=== PATIENT | male | born 1950 | race Caucasian/White ===

== ENCOUNTER 2021-09-21 01:12 | Day surgery (SDC) | payer MEDICARE, SELFPAY ==
[2021-09-08 13:39] VITALS: BMI 34.3
--- NOTE | 2021-09-18 16:08 | PM.HPGS ---
History of Present Illness History of Present Illness Consent: Risks, benefits, and alternatives have been discussed and questions answered. Patient agrees to proceed with procedure. Chief complaint: hx of colon polyps Narrative: Varinder Jamil is a 71 year old male referred for colon cancer screening. He has a history of polyps Review of Systems Review of Systems: All systems reviewed & are unremarkable except as noted in HPI and below PMFSH Past Medical History Medical History CAD (coronary artery disease) Diabetes Hyperlipidemia Rheumatoid arthritis Surgical History Surgical History (Updated 09/21/21 @ 10:55 by Zachary Vides MD) Hx of CABG Social History Social History Smoking packs per day: 2.5 Smoking cigarettes per day: 50.0 Smoking status: Former smoker Tobacco type: cigarettes Alcohol intake: former Alcohol use details: A TEEN Substance use: never Substance use type: does not use Living arrangements: with family Spiritual care concerns: No Meds Home Medications and Allergies Home Medications Medication Instructions Recorded Confirmed Type Enbrel 50 mg SUBCUT WEEKLY 09/08/21 09/08/21 History aspirin 81 mg PO DAILY 09/08/21 09/08/21 History folic acid 1 mg PO DAILY 09/08/21 09/08/21 History glimepiride 2 mg PO DAILY 09/08/21 09/08/21 History metformin 1,000 mg PO BID 09/08/21 09/08/21 History methotrexate sodium 25 mg PO WEEKLY 09/08/21 09/08/21 History metoprolol succinate 50 mg PO DAILY 09/08/21 09/08/21 History pantoprazole 40 mg PO DAILY 09/08/21 09/08/21 History prednisone 2.5 mg PO DAILY 09/08/21 09/08/21 History rosuvastatin 20 mg PO DAILY 09/08/21 09/08/21 History Allergies Allergy/AdvReac Type Severity Reaction Status Date / Time Penicillins Allergy Mild Unknown Verified 09/21/21 10:44 IVP DYE Allergy Mild Hives Uncoded 09/21/21 10:44 Exam Resp: Auscultation: clear to auscultation bilaterally Cardio: Rate: regular rate Rhythm: regular rhythm GI: GI Palp: Yes Soft to palpation and No Tenderness to palpation present (GI) Assessment and Plan Assessment and plan (1) Colon cancer screening: Code(s): Z12.11 - Encounter for screening for malignant neoplasm of colon Status: Acute Assessment and Plan: Colonoscopy with possible biopsy or polypectomy or cautery or injection of substances.
[2021-09-21 10:46] VITALS: BP 153/78; PULSE 61; RESP 18; TEMP 36.3; O2SAT 98; BMI 33.1
--- NOTE | 2021-09-21 10:54 | P.PNAN_ITS ---
Anes - Initial Pre Proc Eval Procedure: Operation Date: 09/21/21 11:30 Proposed Procedures p Screening Colonoscopy - Brett Adnrews MD Date/Time: 09/21/21 10:54 Surgeon: Brett Andrews MD Pre Op Diagnosis: hx of colon polyps Patient Data Age: 71 Gender: M Height: 1.7 m Weight: 96.1 kg Last Vital Signs Temp 36.3 C L 09/21/21 10:46 Pulse 61 09/21/21 10:46 Resp 18 09/21/21 10:46 BP 153/78 H 09/21/21 10:46 Pulse Ox 98 09/21/21 10:46 Allergies Allergy/AdvReac Type Severity Reaction Status Date / Time Penicillins Allergy Mild Unknown Verified 09/21/21 10:44 IVP DYE Allergy Mild Hives Uncoded 09/21/21 10:44 Home Medications Medication Instructions Recorded Confirmed Type aspirin [Adult Low Dose Aspirin] 81 mg PO DAILY 09/08/21 09/08/21 History etanercept [Enbrel] 50 mg SUBCUT WEEKLY 09/08/21 09/08/21 History folic acid 1 mg PO DAILY 09/08/21 09/08/21 History glimepiride 2 mg PO DAILY 09/08/21 09/08/21 History metformin 1,000 mg PO BID 09/08/21 09/08/21 History methotrexate sodium 25 mg PO WEEKLY 09/08/21 09/08/21 History metoprolol succinate 50 mg PO DAILY 09/08/21 09/08/21 History pantoprazole 40 mg PO DAILY 09/08/21 09/08/21 History prednisone 2.5 mg PO DAILY 09/08/21 09/08/21 History rosuvastatin 20 mg PO DAILY 09/08/21 09/08/21 History Patient hx anesthesia problems: none Family hx anesthesia problems: none Results Review: All pre-operative results and documents have been reviewed as part of the pre-operative evaluation. [facility] Past Medical History Medical History (Updated 09/21/21 @ 10:55 by Zachary Vides MD) CAD (coronary artery disease) Diabetes Hyperlipidemia Rheumatoid arthritis Surgical History Surgical History (Updated 09/21/21 @ 10:55 by Zachary Vides MD) Hx of CABG Social History Social History Smoking packs per day: 2.5 Smoking cigarettes per day: 50.0 Smoking status: Former smoker Tobacco type: cigarettes Alcohol intake: former Alcohol use details: A TEEN Substance use: never Substance use type: does not use Living arrangements: with family Spiritual care concerns: No Anes - Eval Final PreProcedure Day of Procedure 09/21/21 10:54 Patient weight: obese Heart: regular rate and rhythm Lungs: clear to auscultation Airway: Mallampati scale class II Neurological: alert and oriented Last oral intake: >/= 8 hours ASA classification: III Emergent: no Anesthetic plan: proceed Anesthesia type and monitoring: general GIVS and standard monitoring Results Review: All pre-operative results and documents have been reviewed as part of the pre-operative evaluation. Informed Consent: The patient's anesthetic plan and its attendant risks and benefits were discussed with the patient/family/POA. Questions were solicited and answers provided to the satisfaction of the patient/family/POA.
[2021-09-21] MEDS: LACTATED RINGERS 1,000 ML 150 ML IV CONT (11:08)
[2021-09-21 11:09] LABS: Glucose Point of Care 101 mg/dl (65-105)
[2021-09-21 11:49] VITALS: BP 110/52; PULSE 53; RESP 18; O2SAT 98
[2021-09-21 11:59] VITALS: BP 112/64; PULSE 46; RESP 18; O2SAT 100
[2021-09-21 12:05] VITALS: BP 120/64; PULSE 46; RESP 18; O2SAT 98
== END 2021-09-21 12:16 | disposition home or self-care (01) ==
PROVIDERS: PCP Internal Medicine; Visit Provider Internal Medicine Gastroenterology
PROC: 0DJD8ZZ Inspection of Lower Intestinal Tract, Via Natural or Artificial Opening Endoscopic (ICD-10-PCS; CPT 45378; principal; 2021-09-21 11:30)
DX: Z12.11 Encounter for screening for malignant neoplasm of colon (principal); K63.5 Polyp of colon; D12.5 Benign neoplasm of sigmoid colon; I25.10 Atherosclerotic heart disease of native coronary artery without angina pectoris; E11.9 Type 2 diabetes mellitus without complications; M06.9 Rheumatoid arthritis, unspecified; E78.5 Hyperlipidemia, unspecified; Z95.1 Presence of aortocoronary bypass graft; Z87.891 Personal history of nicotine dependence; E66.9 Obesity, unspecified; Z68.33 Body mass index [BMI] 33.0-33.9, adult; Z79.82 Long term (current) use of aspirin; Z79.84 Long term (current) use of oral hypoglycemic drugs
CPT/HCPCS: 45385; 82948; 88305; J2704; J7120

== ENCOUNTER 2022-04-20 08:15 | Outpatient (CLI) | payer MEDICARE, SELFPAY ==
--- NOTE | 2022-04-20 11:00 | NEURO_ITS ---
Impression: # Complains of nocturnal paresthesia. Non-insulin dependent diabetic. # Evolving right Carpal Tunnel Syndrome. # Needle/EMG exam mildly neurogenic; Possibility of higher involvement needs to be ruled out. # Clinical correlation recommended. Nerve Conduction Studies Anti Sensory Summary Table Stim Site NR Peak (ms) P-T Amp (?V) Site1 Site2 Delta-P (ms) Dist (cm) Herb (m/s) Left Median Anti Sensory (2-3nd Digit) Wrist 3.2 44.5 Wrist 2-3nd Digit 3.2 14.0 44 Wrist 3.2 35.5 Wrist 2-3nd Digit 3.2 14.0 44 Right Median Anti Sensory (2-3nd Digit) Wrist 4.4 11.8 Wrist 2-3nd Digit 4.4 14.0 32 Wrist 4.2 13.7 Wrist 2-3nd Digit 4.4 14.0 32 Left Radial Anti Sensory (Base 1st Digit) Wrist 2.1 15.7 Wrist Base 1st Digit 2.1 0.0 Right Radial Anti Sensory (Base 1st Digit) Wrist 2.0 19.2 Wrist Base 1st Digit 2.0 0.0 Left Ulnar Anti Sensory (5th Digit) Wrist 2.6 65.5 Wrist 5th Digit 2.6 14.0 54 Right Ulnar Anti Sensory (5th Digit) Wrist 2.6 45.8 Wrist 5th Digit 2.6 14.0 54 Motor Summary Table Stim Site NR Onset (ms) O-P Amp (mV) Site1 Site2 Delta-0 (ms) Dist (cm) Herb (m/s) Left Median Motor (Abd Poll Brev) Wrist 3.1 1.8 Elbow Wrist 5.7 31.0 54 Elbow 8.8 1.9 Right Median Motor (Abd Poll Brev) Wrist 3.8 1.3 Elbow Wrist 5.0 27.0 54 Elbow 8.8 1.0 Left Ulnar Motor (Abd Dig Minimi) Wrist 2.5 6.1 A Elbow Wrist 5.4 30.0 56 A Elbow 7.9 4.8 Right Ulnar Motor (Abd Dig Minimi) Wrist 2.5 4.7 A Elbow Wrist 5.3 29.0 55 A Elbow 7.8 3.7 F Wave Studies NR F-Lat (ms) L-R F-Lat (ms) Left Median (Mrkrs) (Abd Poll Brev) 29.36 0.06 Right Median (Mrkrs) (Abd Poll Brev) 29.42 0.06 Left Ulnar (Mrkrs) (Abd Dig Min) 29.51 0.51 Right Ulnar (Mrkrs) (Abd Dig Min) 29.01 0.51 EMG Side Muscle Nerve Root Ins Act Fibs Amp Dur Recrt Comment Right 1stDorInt Ulnar C8-T1 Nml Nml Nml >12ms Reduced Right Ext Indicis Radial (Post Int) C7-8 Nml Nml Nml Nml Nml Right Ext Digitorum Radial (Post Int) C7-8 Nml Nml Nml Nml Nml Right BrachioRad Radial C5-6 Nml Nml Nml Nml Nml Right PronatorTeres Median C6-7 Nml Nml Nml Nml Nml Right Abd Poll Brev Median C8-T1 Nml Nml Nml >12ms Reduced Left 1stDorInt Ulnar C8-T1 Nml Nml Nml >12ms Reduced Left Ext Indicis Radial (Post Int) C7-8 Nml Nml Nml Nml Nml Left Ext Digitorum Radial (Post Int) C7-8 Nml Nml Nml Nml Nml Left BrachioRad Radial C5-6 Nml Nml Nml Nml Nml Left PronatorTeres Median C6-7 Nml Nml Nml Nml Nml Left Abd Poll Brev Median C8-T1 Nml Nml Nml >12ms Reduced Right ABD Dig Min Ulnar C8-T1 Nml Nml Nml Nml Nml Left ABD Dig Min Ulnar C8-T1 Nml Nml Nml Nml Nml MTDD
== END 2022-04-20 08:16 | disposition home or self-care (01) ==
PROVIDERS: PCP Internal Medicine; Visit Provider Internal Medicine
DX: R20.0 Anesthesia of skin (principal); G56.01 Carpal tunnel syndrome, right upper limb
CPT/HCPCS: 95886; 95911

== ENCOUNTER 2023-05-07 09:58 | Emergency (ER) | payer MEDICARE, SELFPAY ==
[2023-05-07 10:00] VITALS: BP 130/62; PULSE 63; RESP 18; TEMP 36.4; O2SAT 97
--- NOTE | 2023-05-07 10:07 | ECG_ITS ---
Measurements Intervals [place] Rate: 63 P: 39 MA: 162 QRS: 41 QRSD: 110 T: 115 QT: 433 QTc: 447 Interpretive Statements SINUS RHYTHM NONSPECIFIC ST AND T ABNORMALITY ABNORMAL ECG Electronically Signed On 05-08-2023 8:19:00 CDT by Micky Cummings M.D.
--- NOTE | 2023-05-07 10:28 | ED.DIZZY ---
HPI - Dizziness General Chief Complaint: Dizziness Stated Complaint: DIZZY Time Seen by Provider: 05/07/23 10:10 History of Present Illness HPI Narrative: This is a 72-year-old male with past history of coronary artery disease and diabetes, who presents to the emergency department complaining of nausea and vomiting for the past 1 and half hours. The patient states he woke this morning and on sitting up and noticed some lightheadedness, followed by nausea and nonbloody vomiting. He denies fevers, chills, cough, known sick contacts, chest pain, shortness of breath or diarrhea. He states he last passed gas last night but does not feel the need to. He states after receiving 4 mg of Zofran by EMS his symptoms have almost completely resolved Related Data Home Medications Medication Instructions Recorded Confirmed aspirin 81 mg tablet 81 mg PO DAILY 09/08/21 09/08/21 etanercept 50 mg/mL (1 mL) 50 mg subcut WEEKLY 09/08/21 09/08/21 subcutaneous syringe (Enbrel) folic acid 1 mg tablet 1 mg PO DAILY 09/08/21 09/08/21 glimepiride 2 mg tablet 2 mg PO DAILY 09/08/21 09/08/21 metformin 500 mg tablet,extended 1,000 mg PO BID 09/08/21 09/08/21 release 24 hr methotrexate sodium 2.5 mg tablet 25 mg PO WEEKLY 09/08/21 09/08/21 metoprolol succinate 50 mg 50 mg PO DAILY 09/08/21 09/08/21 tablet,extended release 24 hr pantoprazole 40 mg tablet,delayed 40 mg PO DAILY 09/08/21 09/08/21 release prednisone 2.5 mg tablet 2.5 mg PO DAILY 09/08/21 09/08/21 rosuvastatin 20 mg tablet 20 mg PO DAILY 09/08/21 09/08/21 Allergies Allergy/AdvReac Type Severity Reaction Status Date / Time Penicillins Allergy Mild Unknown Verified 09/21/21 10:44 bismuth subsalicylate Allergy Diarrhea Verified 05/07/23 10:19 [From Pepto-Bismol] IVP DYE Allergy Mild Hives Uncoded 09/21/21 10:44 Review of Systems Review of Systems: CONSTITUTIONAL: Denies fever, chills, or sweats. ENT: Denies rhinorrhea, congestion, sore throat, or otalgia. CARDIOVASCULAR: Denies chest pain, palpitations, or edema. RESPIRATORY: Denies cough or dyspnea. GASTROINTESTINAL: Nausea and nonbloody vomiting denies abdominal pain or diarrhea. GENITOURINARY: Denies dysuria or hematuria. SKIN: Denies rash or itching. MUSCULOSKELETAL: Denies back pain, joint pain, or myalgia. NEUROLOGIC: Lightheadedness denies headache, numbness, or weakness. PSYCHIATRIC: Denies anxiety or depression. [facility] Past Medical History Medical History CAD (coronary artery disease) Diabetes Hyperlipidemia Rheumatoid arthritis Surgical History Surgical History Hx of CABG Social History Social History Smoking packs per day: 2.5 Smoking cigarettes per day: 50.0 Smoking status: Former smoker Tobacco type: cigarettes Alcohol intake: former Alcohol use details: A TEEN Substance use: never Substance use type: does not use Living arrangements: with family Spiritual care concerns: No Exam Narrative: GENERAL: Well-developed, well-nourished, and in no acute distress. HEAD: Normocephalic, atraumatic. EYES: PERRLA and EOMI. ENT: Nares clear, no rhinorrhea or epistaxis. Mucous membranes moist. Oropharynx without tonsillar hypertrophy exudate or other lesions. CHEST: Clear to auscultation. No respiratory distress. No wheezes rales or rhonchi. Well-healed midline surgical scar consistent with CABG HEART: Regular rate and rhythm. No murmur heard. Normal peripheral pulses. ABDOMEN: Soft, nontender, nondistended, normal active bowel sounds. EXTREMITIES: Normal range of motion. No edema. SKIN: Warm, dry, no rash. NEURO: No focal deficits. Alert and oriented x3. PSYCH: Normal mood and affect. Course Course Emergency Course: 13:59 - CBC demonstrates mild anemia with hemoglobin of 10.3. Chemistries demonstrate
[2023-05-07] MEDS: SODIUM CHLORIDE 0.9% IV 500 ML 999 ML IV CONT (10:43)
[2023-05-07] MEDS: SODIUM CHLORIDE 0.9% IV 1,000 ML 999 ML IV CONT (12:11)
[2023-05-07 12:39] LABS: Basophils Percent Auto 0.5 % (0.2-1.2); Eosinophils Absolute Auto 0.1 K/mm3 (0-0.3); Eosinophils Percent Auto 1.5 % (0-4.4); Hemoglobin 10.3 g/dL (14.0-18.0); Immature Granulocyte Absolute 0.06 K/mm3 (0.00-0.031); Immature Granulocyte Percent A 0.7 % (0-0.5); Lymphocytes Absolute Auto 0.75 K/mm3 (0.9-3.2); Lymphocytes Percent Auto 9.1 % (18.3-44.2); Mean Corpuscular HGB Conc 32.2 g/dl (32-36); Mean Corpuscular Volume 96.4 fl (80-100); Mean Platelet Volume 11.4 fl (7.4-10.4); Monocytes Absolute Auto 0.5 K/mm3 (0.1-0.6); Monocytes Percent Auto 5.8 % (2.6-8.5); Neutrophils Absolute Auto 6.8 K/mm3 (1.3-6.7); Neutrophils Percent Auto 82.4 % (45.5-73.1); Platelet Count Result 133 k/mm3 (150-375); Red Blood Count 3.32 M/mm3 (4.6-6.20); Red Cell Distribution Width 15.9 % (11.5-14.5); White Blood Count 8.3 K/mm3 (4.5-10.0)
[2023-05-07 12:43] LABS: Alanine Aminotransferase 18 U/L (6-50); Albumin Level 3.5 g/dL (3.5-5.1); Alkaline Phosphatase 46 U/L (38-126); Anion Gap 9 mmol/L (8-16); Aspartate Amino Transferase 25 U/L (17-59); Bilirubin,Total 0.6 mg/dL (0.2-1.3); Blood Urea Nitrogen 22 mg/dL (9-20); Calcium 8.1 mg/dL (8.4-10.2); Carbon Dioxide 26 mmol/L (22-30); Chloride 104 mmol/L (98-107); Estimated CRCL calculation 74 ml/min; Estimated Glomerular Filt Rate > 60; Glucose 148 mg/dL (65-110); Lipase 65 U/L (23-300); Potassium 4.7 mmol/L (3.4-5.0); Sodium 139 mmol/L (137-145)
[2023-05-07 12:59] LABS: Troponin I < 0.012 ng/mL (0.000-0.034)
[2023-05-07 14:16] VITALS: BP 127/75; PULSE 81; RESP 18; O2SAT 98
== END 2023-05-07 14:10 | disposition home or self-care (01) ==
PROVIDERS: Emergency Provider Preventive Medicine Aerospace Medicine; PCP Internal Medicine
DX: R11.2 Nausea with vomiting, unspecified (principal); R42 Dizziness and giddiness; I25.10 Atherosclerotic heart disease of native coronary artery without angina pectoris; E11.9 Type 2 diabetes mellitus without complications; E78.5 Hyperlipidemia, unspecified; M06.9 Rheumatoid arthritis, unspecified; Z95.1 Presence of aortocoronary bypass graft; Z87.891 Personal history of nicotine dependence; Z79.82 Long term (current) use of aspirin; Z79.84 Long term (current) use of oral hypoglycemic drugs
CPT/HCPCS: 36415; 80053; 83690; 84484; 85025; 93005; 96360; 99284; J7030; J7040

== ENCOUNTER 2024-02-29 09:29 | Outpatient (CLI) | payer MEDICARE, SELFPAY ==
--- NOTE | 2024-02-29 11:00 | NEURO_ITS ---
Impression: # Complains of numbness of right hand with nocturnal paresthesia. # Right Carpal Tunnel Syndrome sensory more than motor. # No ulnar neuropathy. # Needle/EMG abnormal in right APB Nerve Conduction Studies Anti Sensory Summary Table Stim Site NR Peak (ms) P-T Amp (?V) Site1 Site2 Delta-P (ms) Dist (cm) Herb (m/s) Right Median Anti Sensory (2-3nd Digit) Wrist 4.2 23.1 Wrist 2-3nd Digit 4.2 14.0 33 Wrist 6.3 29.6 Wrist 2-3nd Digit 4.2 14.0 33 Right Radial Anti Sensory (Base 1st Digit) Wrist 2.6 17.0 Wrist Base 1st Digit 2.6 0.0 Right Ulnar Anti Sensory (5th Digit) Wrist 2.6 50.5 Wrist 5th Digit 2.6 14.0 54 Motor Summary Table Stim Site NR Onset (ms) O-P Amp (mV) Site1 Site2 Delta-0 (ms) Dist (cm) Herb (m/s) Right Median Motor (Abd Poll Brev) Wrist 3.9 1.9 Elbow Wrist 6.1 29.0 48 Elbow 10.0 1.2 Right Ulnar Motor (Abd Dig Minimi) Wrist 2.3 6.0 A Elbow Wrist 5.8 31.0 53 A Elbow 8.1 4.6 F Wave Studies NR F-Lat (ms) L-R F-Lat (ms) Right Median (Mrkrs) (Abd Poll Brev) 32.57 Right Ulnar (Mrkrs) (Abd Dig Min) 29.98 EMG Side Muscle Nerve Root Ins Act Fibs Amp Dur Recrt Comment Right 1stDorInt Ulnar C8-T1 Nml Nml Nml Nml Nml Right Ext Indicis Radial (Post Int) C7-8 Nml Nml Nml Nml Nml Right Ext Digitorum Radial (Post Int) C7-8 Nml Nml Nml Nml Nml Right BrachioRad Radial C5-6 Nml Nml Nml Nml Nml Right PronatorTeres Median C6-7 Nml Nml Nml Nml Nml Right Abd Poll Brev Median C8-T1 Nml Nml Nml >12ms +1 Right ABD Dig Min Ulnar C8-T1 Nml Nml Nml Nml Nml MTDD
== END 2024-02-29 09:30 | disposition home or self-care (01) ==
PROVIDERS: PCP Internal Medicine; Visit Provider Physician Assistant Surgical
DX: G56.01 Carpal tunnel syndrome, right upper limb (principal)
CPT/HCPCS: 95886; 95909